=== PATIENT | male | born 1995 | race Caucasian/White ===

== ENCOUNTER 2025-04-02 13:35 | Inpatient (IN) ==
--- NOTE | 2025-04-02 13:57 | Emergency Department Note ---
Impression & Plan SVT (supraventricular tachycardia), Non-ST elevation AL (NSTEMI) ED Provider Note NAME: JESSICA ERWIN AGE: 30 SEX: M : 1995 ARRIVES VIA: Walk-In INFORMANT: Patient ED PROVIDER(S): Gordy Monroe DO CHIEF COMPLAINT: palpitations HPI: This is a 30-year-old male with the PMHx of obesity and GERD presenting to [facility] for further evaluation of chest palpitations. Patient states this started this morning around 10 AM. He has felt like this in the past. He states that normally he seems to be able to break himself out of these episodes. Patient states he does not know much about his father as he has no relationship. He states his father young from presumed cardiac etiologies. Patient states he has more chest pressure rather than pain. Mild shortness of breath. Does feel lightheaded when the episode started. They deny fever or chills. No cough or congestion. They deny abdominal pain, nausea and vomiting. No urinary complaints. No recent changes in bowel movements. Patient denies recent changes in medications or OTC supplements. Patient offers no other complaints, today. ADDITIONAL HISTORY OBTAINED: Per HPI Chronic Medical/Social Conditions Affecting Care: Per HPI PAST MEDICAL HISTORY: See Below PAST SURGICAL HISTORY: See Below FAMILY HISTORY: See Below SOCIAL HISTORY: See Below HOME MEDICATIONS: See Below ALLERGIES: See Below VITALS: See Below PHYSICAL EXAMINATION: GENERAL: Sitting up in bed, alert, well appearing, well nourished, no distress, non-toxic EYE EXAM: normal conjunctiva. PERRL and EOM's grossly intact. OROPHARYNX: no exudate, no erythema, lips, buccal mucosa, and tongue normal and mucous membranes are moist NECK: supple, no nuchal rigidity, no adenopathy, non-tender LUNGS: Clear to auscultation. Normal chest wall mechanics HEART: no murmurs, tachycardic rate, regular rhythm ABDOMEN: abdomen soft, non-tender, no masses, no rebound or guarding. BACK: Back is symmetrical on inspection and there is no deformity, no midline tenderness, no CVA tenderness. SKIN: no rashes and no bruising UPPER EXTREMITIES: upper extremities are grossly normal. LOWER EXTREMITIES: No pitting edema. NEURO EXAM: Normal sensorium, GCS 15, normal speech, no gross weakness of arms, no gross weakness of legs. MEDICAL DECISION MAKING: Differential diagnoses includes but not limited to ACS, stable vs unstable angina, dysrhythmia, viral URI, pneumonia, pericarditis, pneumothorax, costochondritis, MSK strain, PE, hypertensive emergency, psychological causes, esophageal reflux, gastritis In summary, this is a 30 year old male who presented with chest palpitations and pressure. Differential as above. Nursing notes and pertinent past medical records reviewed. Vital signs reviewed and the patient is severely tachycardic but otherwise afebrile and hemodynamically stable. History and presentation revealed history of similar episodes that have never required emergency department evaluation. Physical examination revealed as above. As a result of my initial evaluation, IV access was established and the patient was placed on CCRM. Therapeutics ordered include close observation. On arrival to the emergency department, vagal maneuvers were successful at terminating the patient's SVT. Diagnostics interpreted by me include EKG and cardiac monitoring as listed below: -Cardiac Monitoring: An order was placed for continuous cardiac monitoring. The monitor shows a rate of 70-200s with regular rhythm. -ECG: SVT at a rate of [address] segment changes to suggest STEMI. There are rate dependent changes present. Intervals are otherwise within normal limits. -Repeat ECG: Normal sinus rhythm at a ventricular rate of [address] segment changes to suggest STEMI. Some ST segment depressions throughout the precordial leads. Intervals are within normal limits. Patient completed laboratory studies and imaging. Results independently interpreted by me are no leukocytosis or anemia. There is no significant electrolyte derangements or significant kidney dysfunction from baseline. No changes in LFTs. Magnesium was only mildly low but he was given 1 g IV replenishment as this may help with converting/sustaining normal sinus rhythm. Troponin level was elevated. This up trended on repeat. Patient was given a loading dose of aspirin. Patient was started on Lopressor. Patient remained hemodynamically stable. Cardiology was consulted. We will admit for further telemetry monitoring and ultrasound to evaluate further for ischemic or valvular disease. Patient agreeable to this. Ultimately, the decision was made to admit the patient for SVT s/p vagal maneuvers with conversion to normal sinus rhythm with subsequent NSTEMI. NSTEMI is not thought to be ischemic in nature. Do feel this is likely related to the patient's significant tachycardia today. For these reasons, heparin infusion was deferred at this time. I discussed the case with the hospitalist service via telephone/TigerText and they are agreeable to admit the patient to their services. Based on the above, including the patient's age, coexisting illnesses, labs, imaging, and exam findings the decision to treat as an inpatient. I discussed the patient with the hospitalist team who recommended admission to their services. They received the medications, treatments, interventions indicated above and their condition remained guarded. I discussed my findings with the patient and their family and they understand and agree with the treatment plan. All patient / family questions were answered to their satisfaction. Escalation of care was considered telemetry observation versus discharge. Telemetry observation is preferred from an emergency department standpoint as the patient has an NSTEMI in the setting of SVT. Patient was agreeable to this after prolonged discussion. Case discussed with consultants including [facility] Cardiology, Dr. Liriano. Consults/Care Managements Discussions: Per [facility] ER treatment provided: See above Procedures:none Critical Care: None The chart was completed utilizing [employer] Speech voice recognition software. Grammatical errors, random word insertions, pronoun errors, and incomplete sentences are an occasional consequence of this system due to software limitations, ambient noise, and hardware issues. Any formal questions or concerns about the content, text, or information contained within the body of this dictation should be directly addressed to the physician for clarification. Past Med/Surg History Problem List (Updated 04/02/25 @ 20:38 by Gordy Monroe DO) Non-ST elevation AL (NSTEMI) (Acute) SVT (supraventricular tachycardia) (Acute) Morbid obesity with BMI of 40.0-44.9, adult Elevated troponin SVT (supraventricular tachycardia) Flank pain (Acute) Flank pain (Acute) Surgical History (Updated 04/02/25 @ 18:24 by Ashley Baez PA-C) Hx of appendectomy Social History Smoking Status: Never smoker Preferred Language: Azeri Feels Safe at Home: Yes Allergies Allergies Allergy/AdvReac Type Severity Reaction Status Date / Time No Known Allergies Allergy Verified 04/02/25 16:17 Home Meds Home Medications Medication Instructions Recorded Confirmed omeprazole magnesium 20 mg 20 mg PO DAILY PRN 04/02/25 04/02/25 tablet,delayed release (Prilosec HEARTBURN/INDIGESTION OTC) Results & Data (ED) Vital Signs Vital Signs - 24 hr 04/02/25 13:40 04/02/25 13:47 04/02/25 13:47 Temperature 36.8 C Temperature Source Temporal Artery Scan Pulse Rate 201 H 206 H 72 Pulse Rate from SpO2 Sensor Respiratory Rate 17 Respiratory Effort / Characteristics Non-Labored Spontaneous Respiratory Depth Normal Blood Pressure 118/61 Blood Pressure Mean 80 Pulse Oximetry 99 Oxygen Delivery Method Room Air Sepsis Recent Fever Within 48 Hours No Sepsis New/Unexplained Change in Mental Status N/A Sepsis Action Taken by Nursing No Action Required 04/02/25 14:04 04/02/25 14:06 04/02/25 15:00 Temperature Temperature Source Pulse Rate 84 Pulse Rate from SpO2 Sensor Respiratory Rate 18 19 Respiratory Effort / Characteristics Respiratory Depth Blood Pressure 137/102 H Blood Pressure Mean 108 Pulse Oximetry 97 Oxygen Delivery Method Room Air Room Air Sepsis Recent Fever Within 48 Hours Sepsis New/Unexplained Change in Mental Status Sepsis Action Taken by Nursing 04/02/25 16:00 04/02/25 16:00 04/02/25 16:30 Temperature Temperature Source Pulse Rate 87 83 79 Pulse Rate from SpO2 Sensor Respiratory Rate 20 20 19 Respiratory Effort / Characteristics Respiratory Depth Blood Pressure 143/95 H 143/95 H 144/87 H Blood Pressure Mean 108 108 110 Pulse Oximetry 98 95 95 Oxygen Delivery Method Room Air Room Air Room Air Sepsis Recent Fever Within 48 Hours Sepsis New/Unexplained Change in Mental Status Sepsis Action Taken by Nursing 04/02/25 17:00 04/02/25 17:30 04/02/25 17:32 Temperature Temperature Source Pulse Rate 87 75 101 H Pulse Rate from SpO2 Sensor Respiratory Rate 15 16 Respiratory Effort / Characteristics Respiratory Depth Blood Pressure 124/92 151/69 H Blood Pressure Mean 103 100 Pulse Oximetry 96 97 Oxygen Delivery Method Room Air Room Air Sepsis Recent Fever Within 48 Hours Sepsis New/Unexplained Change in Mental Status Sepsis Action Taken by Nursing 04/02/25 18:00 04/02/25 18:30 04/02/25 19:00 Temperature Temperature Source Pulse Rate 93 H 86 83 Pulse Rate from SpO2 Sensor 83 Respiratory Rate 13 22 23 Respiratory Effort / Characteristics Respiratory Depth Blood Pressure 162/106 H 142/101 H 148/102 H Blood Pressure Mean 126 117 110 Pulse Oximetry 92 99 97 Oxygen Delivery Method Room Air Room Air Room Air Sepsis Recent Fever Within 48 Hours Sepsis New/Unexplained Change in Mental Status Sepsis Action Taken by Nursing 04/02/25 19:30 04/02/25 20:00 Temperature Temperature Source Pulse Rate 74 73 Pulse Rate from SpO2 Sensor Respiratory Rate 16 Respiratory Effort / Characteristics Respiratory Depth Blood Pressure 135/89 143/95 H Blood Pressure Mean 105 103 Pulse Oximetry 97 97 Oxygen Delivery Method Room Air Room Air Sepsis Recent Fever Within 48 Hours Sepsis New/Unexplained Change in Mental Status Sepsis Action Taken by Nursing Laboratory Data 04/02/25 14:00 04/02/25 14:00 Lab Results 04/02/25 04/02/25 04/02/25 Range/Units 14:00 15:45 17:10 WBC 10.37 (4.8-10.8) K/ul RBC 5.25 (4.70-6.10) M/uL Hgb 15.5 (14.0-18.0) g/dL Hct 45.2 (42.0-52.0) % MCV 86.1 (80.0-100.0) fL MCH 29.5 (25.0-34.0) pg MCHC 34.3 (32.0-36.0) g/dL RDW Std Deviation 41.9 (36.4-46.3) fL RDW Coeff of Jamaal 13.3 (11.5-14.5) % Plt Count 279 (130-400) K/uL MPV 11.7 (9.4-12.4) fL Immature Gran % (Auto) 0.5 % Neut % (Auto) 68.3 % Lymph % (Auto) 25.2 % [place] % (Auto) 4.9 % Eos % (Auto) 0.4 % Baso % (Auto) 0.7 % Neut # (Auto) 7.09 H (1.40-6.50) K/uL Lymph # (Auto) 2.61 (1.20-3.40) K/uL [place] # (Auto) 0.51 (0.11-0.59) K/uL Eos # (Auto) 0.04 (0.00-0.50) K/uL Baso # (Auto) 0.07 (0.00-0.20) K/uL Immature Gran # (Auto) 0.05 (0.01-0.20) K/uL PT Cancelled 11.1 INR Cancelled 1.1 APTT Cancelled 28 PTT Ratio Cancelled 1.0 Sodium 138 (136-145) mmol/L Potassium 4.4 (3.5-5.1) mmol/L Chloride 103 (98-107) mmol/L Carbon Dioxide 25 (21-32) mmol/L Anion Gap 10 (3-11) BUN 15 (6-23) mg/dl Creatinine 1.20 (0.6-1.4) mg/dl Est Cr Clr Drug Dosing 121.0 ml/min eGFR 82.40 BUN/Creatinine Ratio 12.5 (10-20) Glucose 103 H (70-99(Fasting)) mg/dl Calcium 9.8 (8.6-10.3) mg/dl Phosphorus 4.0 (2.5-4.9) mg/dl Magnesium 1.9 (1.7-2.4) mg/dl Total Bilirubin 0.4 (0.2-1.0) mg/dl AST 26 (13-39) U/L ALT 41 (7-52) U/L Alkaline Phosphatase 75 (34-104) U/L Troponin I High Sens 84.2 H* 165.9 H* D (0-20) pg/ml Total Protein 7.7 (6.0-8.3) gm/dl Albumin 4.8 (3.4-5.0) gm/dl Globulin 2.9 (2.5-4.0) gm/dl Albumin/Globulin Ratio 1.7 (0.9-2) TSH 1.365 (0.300-4.500) uIu/ml Administered Medications Discontinued Medications Aspirin (Aspirin Chew 324 Mg) 324 mg PO NOW STA Stop: 04/02/25 14:44 Last Admin: 04/02/25 14:57 Dose: 324 mg Documented By: MARY Parenteral Electrolytes (Plasma-Lyte A Ph 7.4) 1,000 mls @ 999 mls/hr IV .Q1H1M ONE Stop: 04/02/25 14:52 Last Infusion: 04/02/25 15:17 Dose: Infused Documented By: Admin: 04/02/25 14:02 Dose: 999 mls/hr Documented By: ENRICO Magnesium Sulfate/Dextrose (Magnesium Sulfate / D5w) 1 gm in 100 mls @ 100 mls/hr IV NOW STA Stop: 04/02/25 15:43 Last Infusion: 04/02/25 16:18 Dose: Infused Documented By: Admin: 04/02/25 14:57 Dose: 100 mls/hr Documented By: MARY Metoprolol Tartrate (Metoprolol Tartrate 25 Mg Tab) 25 mg PO QAM KARINA Stop: 05/02/25 18:29 Last Admin: 04/02/25 18:49 Dose: 25 mg Documented By: GCC Imaging Data Radiologist's Impression: Chest X-Ray 04/02/25 17:23 Chest radiograph, one view History: Chest pain Comparison: None Findings: Single AP view of the chest performed. No focal consolidation or pleural effusion. No pneumothorax. The cardiomediastinal silhouette is within normal limits. Normal pulmonary vascularity. No evidence for lymphadenopathy. No visualized bony or soft tissue abnormality. Impression: Normal chest radiograph Electronically signed by Yehuda Helton 04-02-2025 6:20 PM Discharge Plan Visit Data Chief Complaint: Arrhythmia/Palpitations Stated Complaint: HEART PALPITATIONS ED Provider: Gordy Monroe Discharge Problem: SVT (supraventricular tachycardia), Non-ST elevation AL (NSTEMI) Patient Disposition: Admitted As Inpatient Condition: Serious Forms Stand Alone Forms: [employer]ire Prescriptions Prescriptions: No Action omeprazole magnesium [Prilosec OTC] 20 mg Tablet,Delayed Release (Dr/Ec) 20 mg PO DAILY PRN (Reason: HEARTBURN/INDIGESTION) Referrals Referrals: PCP,NO [Primary Care Provider] -
[2025-04-02] MEDS: PLASMA-LYTE A 1,000 ML IV ONE (14:02)
[2025-04-02 14:14] LABS: Hematocrit (blood only) 45.2 % (42.0-52.0); Hemoglobin 15.5 g/dL (14.0-18.0); Immature Granulocytes # (auto) 0.05 K/uL (0.01-0.20); Immature Granulocytes % (auto) 0.5 %; Mean Corpuscular Hemoglobin 29.5 pg (25.0-34.0); Mean Corpuscular Volume 86.1 fL (80.0-100.0); Platelet Count 279 K/uL (130-400); RDW Standard Deviation 41.9 fL (36.4-46.3); Red Blood Count 5.25 M/uL (4.70-6.10); White Blood Count 10.37 K/ul (4.8-10.8)
[2025-04-02 14:33] LABS: Alanine Aminotransferase 41.0 U/L (7-52); Albumin Globulin Ratio 1.7 (0.9-2); Albumin Level 4.8 gm/dl (3.4-5.0); Alkaline Phosphatase 75.0 U/L (34-104); Anion Gap 10.0 (3-11); Bilirubin,Total 0.4 mg/dl (0.2-1.0); Blood Urea Nitrogen 15.0 mg/dl (6-23); Calcium 9.8 mg/dl (8.6-10.3); Carbon Dioxide 25.0 mmol/L (21-32); Chloride 103.0 mmol/L (98-107); Creatinine Clr Calc Pharmacy 121.0 ml/min; Globulin 2.9 gm/dl (2.5-4.0); Glucose 103.0 mg/dl (70-99(Fasting)); Magnesium 1.9 mg/dl (1.7-2.4); Potassium 4.4 mmol/L (3.5-5.1); Sodium 138.0 mmol/L (136-145); Total Protein 7.7 gm/dl (6.0-8.3)
[2025-04-02 14:47] LABS: Thyroid Stimulating Hormone 1.365 uIu/ml (0.300-4.500)
[2025-04-02] MEDS: MAGNESIUM SULFATE / D5W 1 GM/100 ML BAG IV STA (14:57)
[2025-04-02] MEDS: ASPIRIN CHEW 324 MG PO STA (14:57)
[2025-04-02 17:55] LABS: INR 1.1 (0.9-1.1); Partial Thromboplastin Time 28 Seconds (21-31); Prothrombin Time 11.1 Seconds (9.0-12.0)
--- NOTE | 2025-04-02 18:20 | History & Physical Report ---
Date of Service April 02, 2025 Assessment & Plan (1) SVT (supraventricular tachycardia): (2) Elevated troponin: (3) Morbid obesity with BMI of 40.0-44.9, adult: Plan - Admit to PCU - initially presented in SVT with heart rate over 101, seen on EKG as reviewed above, vasovagal maneuver broke rhythm, currently heart rate in the 70s to 80s. Patient is hypertensive at 151/69. - Metoprolol tartrate 25 mg BID initiated for SVT, was given dose during my eval at bedside this evening, next dose on 12/7 AM , trend rate control and BP - troponin bumped to 166 on second check, trend every 6 hours - Check Echo - Consult cardiology - Diet and exercise to be encouraged throughout hospital stay - Encouraged reduction and elimination of caffeine as well as alcohol - Labetalol prn ordered for hypertension. Obesity: - BMI of 41.9, diet and exercise encouraged at bedside. DVT ppx: teds, scds, ambulatory Lines: PIV x 2 FEN/GI: heart healthy CODE: Full code Dispo: From home, likely to remain in the hospital x 1-2 days I spent a total of 75 minutes with greater than 50% of that time face to face with the patient, personally reviewing all current laboratories, imaging studies, past medication reconciliation, outpatient chart review, and discussion with specialists to collaborate care for the patient excluding time spent in the performance of separately billed services or time spent by another provider/QHP. Please see attending documentation for corrections and/or additions. History of Present Illness Chief Complaint: Arrhythmia/palpitation Primary Care Provider: NO PCP This is a 30 yo M without significant PMHx. Pt is obese with BMI of 42. Presented to the ER with heart racing and heaviness. Pt admits to having this palpitation sensation multiple times over the past year. He thinks the first time he noticed this he was much younger. He admits to feeling it at least once per month and started keeping track of this around July last year, reviewed on his phone notes, it appears this has occurred at least 6 times since then. Last evening [place] was [place], had drank 3 beers, and was out in the [place] today. he denies regular use of alcohol and states it is very limited use on occasions and denies hx of withdrawal. He does drink caffeine, most mornings has a Celcius energy drink (200mcg caffeine). He was found to be in SVT upon presentation in the ER with EKG reviewed. Vagal maneuver broke rhythm. Cardiology, Dr. Liriano was called by the ER and recommended the initiation of metoprolol. At the time of my exam the patient is in normal sinus rhythm, heart rate in the 86, BP is 156/69. Family Hx: Father with cardiac etiology, in early 60s. Surgical Hx: Appendectomy, Tonsillectomy Social Hx: Self employed [employer]. Alcohol use occasionally 2-3 beers. Previous smoking hx occasionally in college, no smoking now. Denies illicit drug use, marijuana use. Allergies Allergy/AdvReac Type Severity Reaction Status Date / Time No Known Allergies Allergy Verified 04/02/25 16:17 Home Medications Medication Instructions Recorded Confirmed Type omeprazole magnesium 20 mg 20 mg PO DAILY PRN 04/02/25 04/02/25 History tablet,delayed release (Prilosec HEARTBURN/INDIGESTION OTC) Past Med/Surg History Problem List Non-ST elevation [place] (NSTEMI) (Acute) SVT (supraventricular tachycardia) (Acute) Morbid obesity with BMI of 40.0-44.9, adult Elevated troponin SVT (supraventricular tachycardia) Flank pain (Acute) Flank pain (Acute) Surgical History Hx of appendectomy Social History Smoking Status: Never smoker Preferred Language: British Feels Safe at Home: Yes Review of Systems Review of Systems: Constitutional: No fever, sweats or chills Eyes: No diplopia, no worsening or blurred vision ENT: normal hearing, no trouble swallowing Respiratory: No cough, sputum, dyspnea at rest or on exertion Cardiovascular: As per HPI, currently No chest pain, tightness or palpitations Abdomen: No pain, nausea, vomiting, diarrhea or constipation Musculoskeletal: No joint pain, calf pain, swelling Neurologic: No weakness, numbness/tingling, or balance problems Psychiatric: No anxiety or depression Skin: No rash or itch Physical Exam Physical Exam: General: awake, alert, no apparent distress, obese white male Head: Normocephalic, atraumatic ENT: PERRL, EOMI, no pharyngeal exudate, mucous membranes moist Chest: Clear to auscultation, on room air, no adventitious breath sounds Cardiac: Regular rate and rhythm, few PVCs, HR mid 80s, no JVD, normal peripheral pulses, good capillary refill Abdominal: NABS x 4 quadrants, soft, nondistended, nontender to palpation, no rebound or guarding Extremities: Normal inspection, no peripheral edema or erythema, calfs nontender to palpation Psych: Normal mood and affect Neuro: AAO x 3, strength intact bilaterally and rated 5/5, no motor deficits, speech is clear, no peripheral sensory deficits Results & Data Results & Data Vital Signs (Past 12 Hours) Vital Signs Temp Pulse Resp BP Pulse Ox O2 Del Method 04/02/25 17:32 101 H 04/02/25 17:30 75 16 151/69 H 97 Room Air 04/02/25 17:00 87 15 124/92 96 Room Air 04/02/25 16:30 79 19 144/87 H 95 Room Air 04/02/25 16:00 83 20 143/95 H 95 Room Air 04/02/25 16:00 87 20 143/95 H 98 Room Air 04/02/25 15:00 84 19 137/102 H 97 Room Air 04/02/25 14:06 18 04/02/25 14:04 Room Air 04/02/25 13:47 72 04/02/25 13:47 206 H 04/02/25 13:40 36.8 C 201 H 17 118/61 99 Room Air Laboratory Results 04/02/25 04/02/25 04/02/25 17:10 15:45 14:00 WBC 10.37 RBC 5.25 Hgb 15.5 Hct 45.2 MCV 86.1 MCH 29.5 MCHC 34.3 RDW Std Deviation 41.9 RDW Coeff of Jamaal 13.3 Plt Count 279 MPV 11.7 Immature Gran % (Auto) 0.5 Neut % (Auto) 68.3 Lymph % (Auto) 25.2 [place] % (Auto) 4.9 Eos % (Auto) 0.4 Baso % (Auto) 0.7 Neut # (Auto) 7.09 H Lymph # (Auto) 2.61 [place] # (Auto) 0.51 Eos # (Auto) 0.04 Baso # (Auto) 0.07 Immature Gran # (Auto) 0.05 PT 11.1 Cancelled INR 1.1 Cancelled APTT 28 Cancelled PTT Ratio 1.0 Cancelled Sodium 138 Potassium 4.4 Chloride 103 Carbon Dioxide 25 Anion Gap 10 BUN 15 Creatinine 1.20 Est Cr Clr Drug Dosing 121.0 eGFR 82.40 BUN/Creatinine Ratio 12.5 Glucose 103 H Calcium 9.8 Phosphorus 4.0 Magnesium 1.9 Total Bilirubin 0.4 AST 26 ALT 41 Alkaline Phosphatase 75 Troponin I High Sens 165.9 H* D 84.2 H* Total Protein 7.7 Albumin 4.8 Globulin 2.9 Albumin/Globulin Ratio 1.7 TSH 1.365 Diagnostic Findings Chest X-Ray 04/02/25 17:23 Chest radiograph, one view History: Chest pain Comparison: None Findings: Single AP view of the chest performed. No focal consolidation or pleural effusion. No pneumothorax. The cardiomediastinal silhouette is within normal limits. Normal pulmonary vascularity. No evidence for lymphadenopathy. No visualized bony or soft tissue abnormality. Impression: Normal chest radiograph Electronically signed by Yehuda Helton 04-02-2025 6:20 PM ECG Rhythm: SVT Additional Comments: SVT on EKG Code Status & VTE Plan Code Status Full code - discussed with pt at bedside Supervising Physician Co-Signing Physician Notes Patient is a 30-year-old male with obesity and no other significant past medical history presents with history of chest heaviness and palpitations which has been intermittent for about 1 year. Patient noticed he started to have palpitations at around 10 AM this morning for prolonged period of time which is unusual for him. He also states having some chest pressure sensation associated with minimal shortness of breath. Currently he is asymptomatic. He was found to be in SVT while in ED. SVT resolved after vagal maneuvers. Currently in sinus rhythm. Please review HPI for complete details of presentation. ED physician discussed with track vehicle repairer who recommended to start patient on metoprolol. I personally reviewed blood work and imaging studies. Noted troponin elevation 84.2. Normal TSH. Electrolytes within normal limits. Chest x-ray showed no acute process. On exam patient is obese, no apparent distress, normocephalic atraumatic, EOMI, normal breath sounds, clear to auscultation, S1-S2, no murmur, no pedal edema, abdomen soft, nontender,, normal bowel sounds, alert, awake, oriented, grossly no focal deficits. Patient is admitted for management of SVT. Troponin elevation likely demand ischemia. Received magnesium while in ED. Check resting echo. Monitor on telemetry and replete electrolytes as needed. Cardiology consulted. Started on metoprolol to tartrate 25 mg twice a day. Counseled to quit excess coffee, alcohol use. Gentle IV fluids. Trend troponins. I personally interviewed and examined the patient at bedside. I have reviewed the advanced practitioner's documentation on the date of service referred in note and agree with plan. Patient's care is coordinated with Ashley Baez PA-C. Please refer to the documentation above for details of patient's presentation and for discussion of other issues. I spent a total [id number] coordinating, documenting, and providing care for this patient excluding time spent in the performance of separately billed services or time spent by another provider/QHP.
[2025-04-02] MEDS: METOPROLOL TARTRATE 25 MG TAB PO SCH ×2 (18:49→22:45)
[2025-04-02] MEDS ORDERED: LABETALOL HCL IV 5 MG/ML 20ML IV PRN (18:54)
[2025-04-02] MEDS ORDERED: ACETAMINOPHEN 325 MG TAB PO PRN (21:32)
[2025-04-02] MEDS ORDERED: ONDANSETRON INJ 2 MG/ML 2 ML VIAL IV PRN (21:32)
[2025-04-02] MEDS: LACTATED RINGER'S 1,000 ML IV SCH (22:34)
[2025-04-02] MEDS: METOPROLOL TARTRATE 25 MG TAB PO STA (22:45)
[2025-04-02] MEDS: MAGNESIUM SULFATE / D5W 1 GM/100 ML BAG IV ONE (22:49)
[2025-04-03 02:36] VITALS: RESP 18
[2025-04-03 04:12] LABS: Hematocrit (blood only) 42.2 % (42.0-52.0); Hemoglobin 14.3 g/dL (14.0-18.0); Immature Granulocytes # (auto) 0.05 K/uL (0.01-0.20); Immature Granulocytes % (auto) 0.5 %; Mean Corpuscular Hemoglobin 29.5 pg (25.0-34.0); Mean Corpuscular Volume 87.2 fL (80.0-100.0); Platelet Count 275 K/uL (130-400); RDW Standard Deviation 42.8 fL (36.4-46.3); Red Blood Count 4.84 M/uL (4.70-6.10); White Blood Count 9.50 K/ul (4.8-10.8)
[2025-04-03 04:33] LABS: Anion Gap 9.0 (3-11); Blood Urea Nitrogen 14.0 mg/dl (6-23); Calcium 8.8 mg/dl (8.6-10.3); Carbon Dioxide 24.0 mmol/L (21-32); Chloride 105.0 mmol/L (98-107); Creatinine Clr Calc Pharmacy 174.9 ml/min; Glucose 97.0 mg/dl (70-99(Fasting)); Magnesium 2.3 mg/dl (1.7-2.4); Potassium 4.2 mmol/L (3.5-5.1); Sodium 138.0 mmol/L (136-145)
[2025-04-03] MEDS: METOPROLOL TARTRATE 25 MG TAB PO SCH (07:30)
[2025-04-03] MEDS: ENOXAPARIN INJ 40 MG/0.4 ML SYR SQ SCH (07:32)
--- NOTE | 2025-04-03 08:09 | Cardiology Consultation ---
Date of Consultation April 03, 2025 Assessment & Plan (1) SVT (supraventricular tachycardia): (2) Elevated troponin: Plan Assessment: 30 year old male with no significant PMHx presents with ongoing palpitations and found to be in SVT. Resolved with vagal maneuvers and started on metoprolol tartrate. Cardiology consulted for further evaluation and recommendations. Plan: -Patient with palpitations that started approximately 3 hours prior to arrival with no specific trigger. Resolved with vagal maneuvers. -Patient has no prior diagnosis of SVT or other arrhythmia, but does admit he has had multiple similar symptoms over the past year with no known aggravating factors. These events have always resolved prior to seeking medical attention. -Patient denies any excessive caffeine use, no recent increase in ETOH use (occasional social drink), no tobacco use and no illicit drug use. No recent cold/flu-like symptoms and no fevers, chills, no N/V/D. -EKG in ER demonstrates SVT; no repeat EKG on file, please obtain repeat EKG -Review of telemetry overnight shows SR rates 70's to 80's. No ectopy or arrhythmia. -Continue Metoprolol tartrate 25mg PO BID -Echocardiogram pending to assess overall structure and function. -Received IV magnesium supplementation in the ER. Electrolytes are stable. -TSH normal. -Will await echocardiogram and discuss results. Patient will need protracted cardiac monitoring at some juncture, but will await echo results first. Case has been discussed with Dr. Liriano. Further recommendations regarding plan of care as per his assessment. I spent a total of 50 minutes on the date of service in preparation, delivery, documentation of the care provided to the patient excluding any time spent in the performance of separately billed services. [place] [facility] Cardiology [facility] Supervising Physician Co-Signing Physician Notes I have personally performed a history and physical examination on the patient. I have reviewed the advance practitioner's documentation, and I agree with, and take responsibility for the plan of care. 30-year-old male presents with supraventricular tachycardia heart rate 190 bpm. Reports symptoms since childhood however, palpitations have become more frequent and prolonged over the past 18 months. ECG in the ER confirmed supraventricular tachycardia. Patient broke to sinus rhythm with vagal maneuver (blowing into a syringe). Sinus rhythm since admission. Typically, episodes of palpitations have been self terminating. Resting ECG in sinus rhythm demonstrates evidence of preexcitation with normal PA interval and delta wave suggesting WPW. Natural history and pathophysiology of paroxysmal supraventricular tachycardia and Ertnh-Wcfjbmxyi-Lanlb discussed. Recommend electrophysiology consultation to consider ablation therapy. Elevated troponin secondary to prolonged tachycardia and heart rate of excess of 190 bpm. No anginal symptoms reported. Echocardiogram demonstrating preserved LV systolic function and wall motion. Recommend further evaluation with outpatient stress testing or cardiac CT. Appropriate use of vagal maneuvers and when to seek further evaluation in the ER reviewed. All questions answered to patient's satisfaction. Outpatient cardiology follow-up in 1 to 2 weeks. Peter Liriano DO, [facility] I spent a total of 45 minutes on the date of service in preparation, delivery, and documentation of the care provided to this patient, excluding any time spent in the performance of separately billed services. History of Present Illness Reason for Consultation: SVT Requesting Physician: Anshu iraheta Attending Physician: Jose Rothman MD History of Present Illness HPI: Patient is a 30 year old male with no significant past medical history that presented to the ER with acute complaints of palpitations that started approx 2- 3 hours prior to arrival. Patient was found to be in SVT, performed vagal maneuvers causing resolution. He was started on Metoprolol tartrate. further discussion with patient this morning that he has been having these same episodes where he will feel his heart suddenly start to race several times a year over the past year. He states there is not a typical triggering event, uses the example it started last year while hunting, he literally stepped over a log and it started. He works/runs a [employer] and states that when he is active at work he is not noticing any events. The events can last minutes to up to 2 hours, last night was the longest. Patient is resting comfortably in bed this morning, no recurrence of symptoms overnight. Denies any tobacco use, no illicit drug use, endorses rare social ETOH, nothing recent. He will drink maybe one Celsius drink a day. No longer drinks soda. Denies any chest pain, pressure or palpitations. No shortness of breath, near syncope or syncope. He is not familiar with his father's health history, but is aware he during "covid time", distant relatives were not able to provide much detail surrounding his father's , but there is no known cardiac history. No cardiac history for mom. EKG on admission shows SVT rate 195bpm. chest xray negative Troponin 84.2/165.9/577.1/641.1 Review of telemetry shows SR rates 70-80's. Allergies Allergy/AdvReac Type Severity Reaction Status Date / Time No Known Allergies Allergy Verified 04/02/25 16:17 Home Medications Medication Instructions Recorded Confirmed Type omeprazole magnesium 20 mg 20 mg PO DAILY PRN 04/02/25 04/02/25 History tablet,delayed release (Prilosec HEARTBURN/INDIGESTION OTC) Patient History Surgical History Hx of appendectomy Social History Smoking Status: Unknown if ever smoked Hx Alcohol Use: Yes Hx Substance Use: No Preferred Language: Upper Sorbian Communication Ability: Effective Floor Runner Required: No Beliefs That Will Affect Care: None Current Living Situation: Family Other Information That Helps Us Care for You: No Feels Safe at Home: Yes Safety Concerns: Feels Safe At This Time Assistive Devices: None Review of Systems Review of Systems: All systems reviewed & are unremarkable except as noted in HPI & below Physical Exam Constitutional: well developed and well nourished; no acute distress and not ill appearing Neck: normal visual inspection and trachea midline Respiratory: normal respiratory effort, lungs clear to auscultation Cardiovascular: Rate/Rhythm: regular rate and regular rhythm Heart Sounds: normal S1 and normal S2; no murmur Vessels: dorsalis pedis pulses present; no JVD Skin: no rashes, warm and dry Psychiatric: A+Ox3, euthymic affect Results & Data Vital Signs (Past 12 Hours) Vital Signs Temp Pulse Pulse Resp BP BP Pulse Ox 04/03/25 07:19 36.6 C 77 18 115/76 96 04/03/25 02:35 36.6 C 67 18 105/69 97 04/02/25 21:37 80 04/02/25 21:30 36.6 C 80 16 134/103 H 97 04/02/25 21:00 154/94 H 98 04/02/25 21:00 72 18 154/94 H 98 04/02/25 20:30 70 19 164/95 H 97 04/02/25 20:00 73 143/95 H 97 O2 Del Method 04/03/25 07:19 Room Air 04/03/25 02:35 Room Air 04/02/25 21:37 04/02/25 21:30 Room Air 04/02/25 21:00 04/02/25 21:00 Room Air 04/02/25 20:30 Room Air 04/02/25 20:00 Room Air Laboratory Results Cardiac Enzymes 04/02/25 04/02/25 04/02/25 Range/Units 14:00 15:45 22:26 AST 26 (13-39) U/L Troponin I High Sens 84.2 H* 165.9 H* D 577.1 H* D (0-20) pg/ml 04/03/25 04/03/25 Range/Units 03:46 08:17 AST (13-39) U/L Troponin I High Sens 641.1 H* 417.5 H* D (0-20) pg/ml Coagulation 04/02/25 04/02/25 Range/Units 14:00 17:10 PT Cancelled 11.1 APTT Cancelled 28 CBC 04/02/25 04/03/25 Range/Units 14:00 03:46 WBC 10.37 9.50 (4.8-10.8) K/ul RBC 5.25 4.84 (4.70-6.10) M/uL Hgb 15.5 14.3 (14.0-18.0) g/dL Hct 45.2 42.2 (42.0-52.0) % Plt Count 279 275 (130-400) K/uL Neut # (Auto) 7.09 H 5.00 (1.40-6.50) K/uL Lymph # (Auto) 2.61 3.46 H (1.20-3.40) K/uL Reeves # (Auto) 0.51 0.75 H (0.11-0.59) K/uL Eos # (Auto) 0.04 0.16 (0.00-0.50) K/uL Baso # (Auto) 0.07 0.08 (0.00-0.20) K/uL Comprehensive Metabolic Panel 04/02/25 04/03/25 Range/Units 14:00 03:46 Sodium 138 138 (136-145) mmol/L Potassium 4.4 4.2 (3.5-5.1) mmol/L Chloride 103 105 (98-107) mmol/L Carbon Dioxide 25 24 (21-32) mmol/L BUN 15 14 (6-23) mg/dl Creatinine 1.20 0.83 D (0.6-1.4) mg/dl Glucose 103 H 97 (70-99(Fasting)) mg/dl Calcium 9.8 8.8 (8.6-10.3) mg/dl AST 26 (13-39) U/L ALT 41 (7-52) U/L Alkaline Phosphatase 75 (34-104) U/L Total Protein 7.7 (6.0-8.3) gm/dl Albumin 4.8 (3.4-5.0) gm/dl Intake and Output 04/02/25 04/03/25 04/03/25 22:59 06:59 14:59 Intake Total 1100 / 1500 400 / 1500 871.25 / 871.25 Balance 1100 / 1500 400 / 1500 871.25 / 871.25 Intake: IV 1100 / 1200 100 / 1200 871.25 / 871.25 Lactated Ringer's 1,000 ml @ 75 871.25 / 871.25 mls/hr IV .[id number] [facility] Rx#: [id number] Magnesium Sulfate / D5w 1 gm In 100 / 200 100 / 200 100 ml @ 50 mls/hr IV ONE ONE Rx#:[id number] Plasma-Lyte A 1,000 ml @ 999 1000 / 1000 mls/hr IV .Q1H1M ONE Rx#: [id number] Oral 300 / 300 Other: # Unmeasured Voids 2 1 Weight 132.4 kg Weight Measurement Method Built in [facility] PG Care Time/CCT Total # of Minutes Spent Total Time Spent with Patient: Total time spent is greater than 50% in coordination of care (as documented) at patient's floor/unit and/or counseling patient: Coding Level of Care Code 44634 IN/OBS CONSULT LVL 5,80M Diagnoses SVT (supraventricular tachycardia) I47.10 Elevated troponin R79.89 Time Spent (min) 30
--- NOTE | 2025-04-03 11:07 | Hospitalist Progress Note ---
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 Electrocardiogram in the ER revealed supraventricular tachycardia with a ventricular rate of 195 bpm. Labs acceptable during presentation, except mag on low end of normal and received IV magnesium. Episode was abated with vagal maneuver. He has had a troponin leak peaking at 641.6 pg/ml. As of this morning it has downtrended to 417.5 pg/ml. He is w/o cardiac complaint this morning. Denies tobacco/ETOH/drug use. Caffeine intake 1 celsius per day ~ to 200mg of caffeine Increased stress this time of year with snow removal season. No known prior medical hx of family hx of CAD or arrhythmia he is aware of. Pt admitted to PCU awaiting echocardiogram continue metoprolol tartrate 25mg bid ecg today NSR, 75bpm, possible [id number] awaiting cardiology evaluation Obesity: BMI of 41.9, pt very active in form of employment encourage lifestyle measures when able DVT ppx: SQ Lovenox CODE: Full code Dispo: From home, awaiting cardiology evaluation I spent a total of 52 minutes coordinating, documenting and providing care for this patient excluding time spent in the performance of separately billed services or time spent by another provider/QHP. Admission and Anticipated Discharge Date Admission Date: April 02, 2025 Subjective Patient was seen and examined in 218. Follow-up SVT. Patient presented to ER last evening after having significant heart palpitations that were not resolved. He has had similar episodes in the past dating back several years. He is unsure of any triggers for the events. He states he had presented to ED in the past, but symptoms abated. He reports this is the first time being diagnosed with SVT, but now attributes previous episodes to this. 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 He does report this time of year being very stressful with snow removal season. He feels like stress does make this worse. He denies symptoms when exerting himself. Except heart palpitations he is otherwise asymptomatic. When symptoms began he denies any chest pain, shortness of breath, dizziness, lightheadedness or presyncope. He denies any family history of known heart disease, but reports he is not close to his father. He denies any significant alcohol or tobacco use. He denies illicit drug use.He does drink 1 Celsius a day That has approximately 200 mg of caffeine. Review of Systems Review of Systems: All systems reviewed & are unremarkable except as noted in HPI & below Physical Exam Physical Exam: Gen: WD/WN, Sitting at bedside,NAD, A&O x3 HEENT: Normocephalic, atraumatic, conjunctivae moist, sclerae anicteric, mucous membranes moist. Lung: Clear to Auscultation bilaterally, no wheezes/rales/rhonchi Heart: Regular rate, regular rhythm, no murmurs, rubs, or gallops Abdomen: Soft, NT, ND +BS x 4 Extremities: No edema Skin: Warm, no rash, negative turgor. Results & Data Results & Data Vital Signs (Past 12 Hours) Vital Signs Temp Pulse Pulse Resp BP Pulse Ox O2 Del Method 04/03/25 07:19 36.6 C 77 18 115/76 96 Room Air 04/03/25 05:30 72 04/03/25 02:35 36.6 C 67 18 105/69 97 Room Air Laboratory Results I have independently reviewed and interpreted patient's CBC, BMP, Trop Short CBC 04/02/25 04/03/25 Range/Units 14:00 03:46 WBC 10.37 9.50 (4.8-10.8) K/ul Hgb 15.5 14.3 (14.0-18.0) g/dL Hct 45.2 42.2 (42.0-52.0) % Plt Count 279 275 (130-400) K/uL BMP 04/02/25 04/03/25 14:00 03:46 Sodium 138 138 Potassium 4.4 4.2 Chloride 103 105 Carbon Dioxide 25 24 BUN 15 14 Creatinine 1.20 0.83 D Glucose 103 H 97 Calcium 9.8 8.8 Liver Function 04/02/25 Range/Units 14:00 Total Bilirubin 0.4 (0.2-1.0) mg/dl AST 26 (13-39) U/L ALT 41 (7-52) U/L Alkaline Phosphatase 75 (34-104) U/L Albumin 4.8 (3.4-5.0) gm/dl Medications Administered Current Inpatient Medications Acetaminophen (Acetaminophen 325 Mg Tab) 650 mg PO Q4H PRN PRN Reason: Moderate Pain (Scale 4, 5, 6) Stop: 05/02/25 21:31 Enoxaparin Sodium (Enoxaparin Inj 40 Mg/0.4 Ml Syr) 40 mg SQ QAM [facility] Stop: 05/03/25 08:59 Last Admin: 04/03/25 07:32 Dose: Not Given Labetalol HCl (Labetalol Hcl Iv 5 Mg/Ml 20ml) 10 mg IV Q6H PRN PRN Reason: Hypertension SBP >180,DBP >100 Stop: 05/02/25 18:59 Metoprolol Tartrate (Metoprolol Tartrate 25 Mg Tab) 25 mg PO BID [facility] Stop: 05/03/25 08:59 Last Admin: 04/03/25 07:30 Dose: 25 mg Ondansetron HCl (Ondansetron Inj 2 Mg/Ml 2 Ml Vial) 4 mg IV Q4H PRN PRN Reason: Nausea And Vomiting Stop: 05/02/25 21:31 Pantoprazole Sodium (Pantoprazole 40 Mg Tab) 40 mg PO DAILY PRN PRN Reason: HEARTBURN/INDIGESTION Stop: 05/02/25 21:34
--- NOTE | 2025-04-03 13:53 | XCELERA ---
[id number]
--- NOTE | 2025-04-03 16:19 | Discharge Summary ---
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 Electrocardiogram in the ER revealed supraventricular tachycardia with a ventricular rate of 195 bpm. Labs acceptable during presentation, except mag on low end of normal and received IV magnesium. Episode was abated with vagal maneuver. He has had a troponin leak peaking at 641.6 pg/ml. As of this morning it has downtrended to 417.5 pg/ml. He is w/o cardiac complaint this morning.Denies tobacco/ETOH/drug use. Caffeine intake 1 celsius per day ~ to 200mg of caffeine. Increased stress this time of year with snow removal season. No known prior medical hx of family hx of CAD or arrhythmia he is aware of.He was seen and evaluated by cardiology. The etiology of SVT was explained to him. 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 Cardiology is recommending outpatient electrophysiology evaluation as well as stress test and possible cardiac MRI. Cardiology does not feel patient requires discharge on oral beta-cristina therapy. He was educated on the vagal maneuver procedures. If symptoms return and do not celestine with this he is to return to ED immediately. On day of discharge patient was in normal sinus rhythm. He was tolerating a normal diet. His vital signs are otherwise stable. All questions were answered. Notes For Next Care Provider Please ensure patient has cardiology follow-up. He will need outpatient Zio patch along with electrophysiology consultation. Cardiology should be able to arrange this. Medication Changes From Visit none Admission HPI Per Admitting Provider This is a 30 yo M without significant PMHx. Pt is obese with BMI of 42. Presented to the ER with heart racing and heaviness. Pt admits to having this palpitation sensation multiple times over the past year. He thinks the first time he noticed this he was much younger. He admits to feeling it at least once per month and started keeping track of this around July last year, reviewed on his phone notes, it appears this has occurred at least 6 times since then. Last evening he was at hunting camp, had drank 3 beers, and was out in the graves today. he denies regular use of alcohol and states it is very limited use on occasions and denies hx of withdrawal. He does drink caffeine, most mornings has a Celcius energy drink (200mcg caffeine). He was found to be in SVT upon presentation in the ER with EKG reviewed. Vagal maneuver broke rhythm. Cardiology, Dr. Liriano was called by the ER and recommended the initiation of metoprolol. At the time of my exam the patient is in normal sinus rhythm, heart rate in the 86, BP is 156/69. Family Hx: Father with cardiac etiology, in early 60s. 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 Alcohol use occasionally 2-3 beers. Previous smoking hx occasionally in college, no smoking now. Denies illicit drug use, marijuana use. Admission Exam Per Admitting Provider General: awake, alert, no apparent distress, obese white male Head: Normocephalic, atraumatic ENT: PERRL, EOMI, no pharyngeal exudate, mucous membranes moist Chest: Clear to auscultation, on room air, no adventitious breath sounds Cardiac: Regular rate and rhythm, few PVCs, HR mid 80s, no JVD, normal peripheral pulses, good capillary refill Abdominal: NABS x 4 quadrants, soft, nondistended, nontender to palpation, no rebound or guarding Extremities: Normal inspection, no peripheral edema or erythema, calfs nontender to palpation Psych: Normal mood and affect Neuro: AAO x 3, strength intact bilaterally and rated 5/5, no motor deficits, speech is clear, no peripheral sensory deficits Discharge Exam Gen: WD/WN, Sitting at bedside,NAD, A&O x3 HEENT: Normocephalic, atraumatic, conjunctivae moist, sclerae anicteric, mucous membranes moist. Lung: Clear to Auscultation bilaterally, no wheezes/rales/rhonchi Heart: Regular rate, regular rhythm, no murmurs, rubs, or gallops Abdomen: Soft, NT, ND +BS x 4 Extremities: No edema Skin: Warm, no rash, negative turgor. Updated Medication List Medication Instructions Recorded Confirmed Type omeprazole magnesium 20 mg 20 mg PO DAILY PRN 04/02/25 04/02/25 History tablet,delayed release (Prilosec HEARTBURN/INDIGESTION OTC) Hospital Stay Data Consultations 04/02/25 18:15 ED Decision to Admit Stat 04/02/25 21:32 Consult Cardiology Routine Diagnostic Imagining Performed Short CBC 04/03/25 Range/Units 03:46 WBC 9.50 (4.8-10.8) K/ul Hgb 14.3 (14.0-18.0) g/dL Hct 42.2 (42.0-52.0) % Plt Count 275 (130-400) K/uL BMP 04/03/25 03:46 Sodium 138 Potassium 4.2 Chloride 105 Carbon Dioxide 24 BUN 14 Creatinine 0.83 D Glucose 97 Calcium 8.8 Chest X-Ray 04/02/25 17:23 Chest radiograph, one view History: Chest pain Comparison: None Findings: Single AP view of the chest performed. No focal consolidation or pleural effusion. No pneumothorax. The cardiomediastinal silhouette is within normal limits. Normal pulmonary vascularity. No evidence for lymphadenopathy. No visualized bony or soft tissue abnormality. Impression: Normal chest radiograph Electronically signed by eYhuda Helton 04-02-2025 6:20 PM Echocardiogram: Left ventricular systolic function is normal with an EF of 55 to 60%, mild concentric LVH, left ventricular wall motion is normal. Pending Results Patient Have Any Pending Studies at Discharge: No Discharge Instructions Given to Patient (Per Discharging Provider) MEDICATION CHANGES: No new medications SUMMARY OF TEST RESULTS: You were admitted to the hospital due to an abnormal rhythm called supraventricular tachycardia (SVT). You were seen and evaluated by the watch assembly instructor. 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 It is recommended you see a Gas Stove Servicer Helper for this. They specialize in these heart rhythms to treat them with therapy known as, Ablations. You had an echocardiogram which is an ultrasound of your heart. The ultrasound of your heart was otherwise unremarkable. Your heart enzymes were elevated during your hospital stay and this was felt to be due to your fast heart rhythm. PENDING TEST RESULTS: none RECOMMENDATIONS FOR FOLLOW-UP: It is recommended that you establish with a primary care provider. They will be able to help coordinate further follow-up for you. It is recommended you follow-up with cardiology as an outpatient in 1-2 weeks. It is requested that you have a heart monitor as an outpatient to monitor for further heart rhythms. Cardiology is recommending you have an electrophysiology consultation for possible heart ablation. Cardiology will be able to arrange this. Limit caffeine intake if able. Do not exercise heavily until you follow-up with your watch assembly instructor. Please refer to the hand out provided to you at discharge regarding SVT education. OTHER INSTRUCTIONS: Seek medical attention if you have: * temperature above 101 * chest pain, worsening palpitations that do not resolve with vagal maneuver or trouble breathing * abdominal pain, nausea, vomiting * diarrhea, dark stools or bloody stools * any unanswered questions or concerns Call 911 if symptoms are severe. Please take good care of yourself. It has been a pleasure taking care of you. Please take care of yourself. If you have any questions regarding your recent hospitalization please contact [facility] and request [facility] @ [phone]. Marta Delgado PA-C Total Time Total Time Spent Total Time Spent (In Minutes): 50 minutes Supervising Physician Co-Signing Physician Notes Patient seen and examined independently. He is doing well; denies any chest pain, palpitation, shortness of breath or dizziness Telemetry was unremarkable. Discussed with cardiology; they recommended vagal maneuver to terminate SVT; recommend against beta-cristina given possible WPW. Patient to follow-up with cardiology and cardiology EP as outpatient. Patient verbalized understanding. I have reviewed the advanced practitioner's documentation, and I agree with, and take responsibility for the plan of care I spent a total of 30 minutes coordinating, documenting, and providing care for this patient excluding time spent in the performance of separately billed services. All of the aforementioned completed while collaborating with the assigned advanced practitioner for a full treatment plan
[2025-04-03 16:26] VITALS: BP 128/82; PULSE 64; TEMP 97.9; O2SAT 99
--- NOTE | 2025-04-04 01:18 | Electrocardiogram Report ---
Test Reason : Blood Pressure : */* mmHG Vent. Rate : 195 BPM Atrial Rate : * BPM P-R Int : * ms QRS Dur : 84 ms QT Int : 250 ms P-R-T Axes : * 80 243 degrees QTcB Int : 450 ms Supraventricular tachycardia Marked ST abnormality, possible lateral subendocardial injury Abnormal ECG No previous ECGs available Confirmed by Yareli Che ([place]) on 04/04/2025 1:17:38 AM Referred By: REFERRED SELF Confirmed By: Yareli Che
--- NOTE | 2025-04-04 01:20 | Electrocardiogram Report ---
Test Reason : Blood Pressure : */* mmHG Vent. Rate : 95 BPM Atrial Rate : 95 BPM P-R Int : 148 ms QRS Dur : 102 ms QT Int : 360 ms P-R-T Axes : 52 61 65 degrees QTcB Int : 452 ms Normal sinus rhythm vs Ikvra-fkxniziju-eyfqt Nonspecific ST abnormality Abnormal ECG When compared with ECG of 02-Apr-2025 13:46, (unconfirmed) Vent. rate has decreased by 100 bpm previous ECG shows SVT T wave inversion no longer evident in Inferior leads T wave inversion no longer evident in Lateral leads Confirmed by Yareli Che ([place]) on 04/04/2025 1:19:45 AM Referred By: REFERRED SELF Confirmed By: Yareli Che
--- NOTE | 2025-04-04 08:47 | Electrocardiogram Report ---
Test Reason : Blood Pressure : */* mmHG Vent. Rate : 75 BPM Atrial Rate : 75 BPM P-R Int : 148 ms QRS Dur : 122 ms QT Int : 440 ms P-R-T Axes : 38 45 61 degrees QTcB Int : 491 ms Normal sinus rhythm Iqpjw-axarwnxcy-njbhu Abnormal ECG When compared with ECG of 02-Apr-2025 13:49, (unconfirmed) Zlefg-ymfmgnool-xsdyq is now Present Confirmed by Yareli Che (1969) on 04/04/2025 8:47:42 AM Referred By: REFERRED SELF Confirmed By: Yareli Che
== END 2025-04-03 16:35 | disposition home or self-care (01) | DRG 309 ==
LOC: ED 13:35 → SUATTDRO 18:38 → 2S 18:38
DX: Z68.41 Body mass index [BMI] 40.0-44.9, adult; E83.42 Hypomagnesemia; E66.01 Morbid (severe) obesity due to excess calories; I47.10 Supraventricular tachycardia, unspecified; R79.89 Other specified abnormal findings of blood chemistry